=== PATIENT | male | born 2005 ===

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

== ENCOUNTER 2024-02-16 20:56 | Emergency (ER) | payer SELFPAY ==
[2024-02-16 20:57] VITALS: BP 113/66; PULSE 81; RESP 20; TEMP 37; O2SAT 98; BMI 27.5
--- NOTE | 2024-02-16 21:23 | ED_ITS ---
HPI - Nausea/Vomiting/Diarrhea General Chief complaint: Nausea/Vomiting/Diarrhea Stated complaint: vomiting Time Seen by Provider: 02/16/24 21:15 Source: patient Mode of arrival: ambulatory Limitations: no limitations History of Present Illness ED Provider: Dr. Jigna Dumont HPI Narrative: Patient comes to the emergency room complaining of nausea vomiting and diarrhea. Patient states that earlier today he has been eating throughout the day food and also ate shrooms. It has been couple of hours since the symptoms started. Patient denies chest pain or shortness of breath, denies any hematemesis or melena. Patient denies any significant abdominal pain. Related Data Previous Rx's ?Medication ?Instructions ?Recorded hydrocodone 5 mg-acetaminophen 325 1 tab PO Q4H PRN pain 7 days #14 11/29/ mg tablet tabs loperamide 2 mg tablet 2 mg PO Q6H PRN loose stool #14 02/16/24 tabs ondansetron 4 mg disintegrating 4 mg PO Q6H PRN nausea and 02/16/24 tablet vomiting #10 tabs Allergies Allergy/AdvReac Type Severity Reaction Status Date / Time shellfish derived Allergy Severe Anaphylaxis Verified 02/16/24 21:00 Review of Systems 2 Review of Systems: Constitutional : No Weight loss, No Fever, No Chills, No Night Sweats, No Fatigue, No Malaise ENT/Mouth : No Hearing loss, No Ear Pain, No Nasal Congestion, No Sinus Pain, No Hoarseness, No sore throat, No Rhinorrhea, No Swallowing Difficulty Eyes: No Eye Pain, No Swelling, No Redness, No Foreign Body, No Discharge, No Vision Changes Cardiovascular : No Chest Pain, No SOB, No Dyspnea on Exertion, No Orthopnea, No Edema, No Palpitations Respiratory : No Cough, No Sputum, No Wheezing, No Smoke Exposure, No Dyspnea Gastrointestinal : Complaining of nausea vomiting and diarrhea, No Constipation, No abdominal Pain, No Hematochezia, No Melena Genitourinary : no irregular bleeding, No Dysuria, No Urinary Frequency, No Hematuria, No Urinary Incontinence, No Urgency, No Flank Pain, No Urinary Flow Changes, No Hesitancy Musculoskeletal : No joint pain, No Myalgias, No Joint Swelling Skin : No Skin Lesions, No rash Neuro : No Weakness, No Numbness, No Paresthesias, No Loss of Consciousness, No Dizziness, No Headache Psych : No Anxiety/Panic, No Depression, No SI/HI/AH/VH, No Social Issues, Heme/Lymph: No Bruising, No Bleeding,No Lymphadenopathy Endocrine : No Polyuria, No Polydipsia, No Temperature Intolerance PENDING SALE TO [facility] Past Medical History Medical History (Updated 02/16/24 @ 22:27 by Jigna Dumont MD) Rupture of testis No known health problems Surgical History History of tonsillectomy and adenoidectomy Social History Social History Patient Tobacco Use Status: Never used Tobacco Advance Directives: No Advance Directives Information Provided: No Physical Exam 2 Vital Signs: Vital Signs: Last Vital Signs Temp 98.6 F 02/16/24 20:57 Pulse 81 02/16/24 20:57 Resp 20 02/16/24 20:57 BP 113/66 02/16/24 20:57 Pulse Ox 98 02/16/24 20:57 O2 Del Method Room Air 02/16/24 20:57 BMI result Body Mass Index 27.5 Const: Other: Appearance: Alert. Oriented X3. No acute distress. Well-appearing Eyes: Pupils equal, round and reactive to light. ENT: Pharynx normal. Neck: Normal inspection. Neck supple. No lymph nodes noted. No crepitus CVS: Normal heart rate and rhythm. Pulses normal. Normal S1 and S2 Respiratory: No respiratory distress. Breath sounds normal. No Wheezing. No rales Abdomen: Soft and nontender. No rigidity. No distention. Skin: Skin warm and dry. Normal skin color. Normal skin turgor. Extremities: No lower extremity edema. No Lacerations. No Rash Neuro: Oriented X 3. No motor deficit. No sensory deficit. Moving all extremities. No slurred speech. CN 2 through 12 grossly intact Psych: calm, cooperative, normal affect Course Course Course Narrative: Patient receiving IV fluids, loperamide and Zofran. All labs pending Discussed with the patient that depending on his labs and repeat physical exam, we will determine if he needs any imaging. Medications Administered Discontinued Medications Generic Name Dose Route Start Last Admin Trade Name Freq PRN Reason Stop Dose Admin Sodium Chloride 1,000 mls @ 999 mls/hr 02/16/24 21:21 02/16/24 22:23 Ns IVCONT 02/16/24 22:21 999 mls/hr .Q1H1M ONE Administration Loperamide HCl 4 mg 02/16/24 21:21 02/16/24 22:23 Loperamide Hcl 2 Mg Capsule PO 02/16/24 21:22 4 mg ONCE ONE Administration Ondansetron HCl 4 mg 02/16/24 21:21 02/16/24 22:23 Ondansetron Hcl 4 Mg/2 Ml Vial IVPUSH 02/16/24 21:22 4 mg ONCE ONE Administration Medical Decision Making Medical Decision Making [facility] Narrative: After the above-mentioned treatment, patient feeling much better. Physical exam after the IV treatment, patient feels much better, no abdominal pain, well-appearing, well-hydrated Patient has not had any episodes of vomiting or diarrhea. Patient likely had a reaction to the shrooms that he ate, versus gastroenteritis. Versus viral syndrome Differential Diagnosis Differential Diagnoses: The differential diagnosis associated with the presentation includes (As above) Lab Data [facility] Lab Attestation statement: I reviewed the patient's lab results. 02/16/24 21:40 02/16/24 21:40 Labs: Lab Results 02/16/24 02/16/24 Range/Units 21:40 21:58 WBC 8.4 (4.8-10.8) X10*3/uL RBC 4.96 (4.60-5.80) X10*6/uL Hgb 15.4 (14.0-18.0) g/dl Hct 42.8 (42.0-52.0) % MCV 86.3 (80.0-98.0) fL MCH 31.0 (27.0-33.0) pg MCHC 36.0 (31.0-36.0) g/dl RDW 12.2 (11.0-16.0) % Plt Count 245 (160-400) X10*3/uL MPV 8.9 L (9.4-12.4) fL Immature Gran % (Auto) 0.4 (0.0-0.4) % Neut % (Auto) 61.3 (45-73) % Lymph % (Auto) 26.0 (20-40) % [place] % (Auto) 7.0 (2-11) % Eos % (Auto) 4.5 H (0-4) % Baso % (Auto) 0.8 (0-2) % Lymph # (Auto) 2.2 (1.2-4.9) X10*3/uL [place] # (Auto) 0.6 (0.1-1.2) X10*3/uL Eos # (Auto) 0.4 (0.0-0.4) X10*3/uL Baso # (Auto) 0.1 (0.0-0.2) X10*3/uL Abs Immat Gran (auto) 0.03 (0.00-0.03) X10*3/uL Absolute Neuts (auto) 5.2 (2.0-8.3) x10*3/uL Absolute Nucleated RBC 0.000 (0.0-0.012) X10*3/uL Nucleated RBC % (auto) 0.0 (0.0-0.2) /100WBC Sodium 140 (135-145) mmol/L Potassium 3.7 (3.3-5.1) mmol/L Chloride 107 (96-108) mmol/L Carbon Dioxide 24 (22-29) mmol/L Anion Gap 13 (12-20) BUN 13 (9-16) mg/dL Creatinine 0.82 (0.5-1.4) mg/dL Estim Creat Clear Calc 136.0 Estimated GFR > 60 Random Glucose 97 (60-115) mg/dL Calcium 9.5 (8.4-10.2) mg/dL Magnesium 1.9 (1.6-2.6) mg/dL Total Bilirubin 0.3 (0.0-1.0) mg/dL Direct Bilirubin 0.1 (0.0-0.5) mg/dL AST 25 (5-37) U/L ALT 29 (0-40) U/L Alkaline Phosphatase 68 (39-117) U/L Total Protein 7.2 (6.5-8.0) g/dL Albumin 4.6 (3.5-5.0) g/dL Lipase 16 (8-78) U/L Urine Color Yellow Urine Appearance Clear Urine pH 7.0 (5.0-9.0) Ur Specific [place] 1.015 (1.005-1.025) Urine Protein Negative (Neg-Trace) mg/dL Urine Glucose (UA) Negative (Negative) mg/dL Urine Ketones Negative (Negative) mg/dL Urine Blood Negative (Negative) Urine Nitrite Negative (Negative) Ur Leukocyte Esterase Negative (Negative) Ethyl Alcohol < 10 mg/dL Discharge Plan Discharge Clinical Impression: Nausea vomiting and diarrhea Patient Disposition: Home, Self-Care Instructions: Acute Nausea and Vomiting (ED), Acute Diarrhea (ED) Additional Instructions: Please follow-up with your primary care physician tomorrow. If you have any worsening or new symptoms, please return to the emergency room or call 911 Prescriptions: New loperamide 2 mg tablet 2 mg PO Q6H PRN (Reason: loose stool) Qty: 14 0RF ondansetron 4 mg tablet,disintegrating 4 mg PO Q6H PRN (Reason: nausea and vomiting) Qty: 10 0RF No Action hydrocodone-acetaminophen 5-325 mg tablet 1 tab PO Q4H PRN (Reason: pain) 7 Days Qty: 14 0RF Rx Instructions: Partial Fill upon patient request. Print Language: Croatian
[2024-02-16 21:44] LABS: MANUAL DIFF FLAG NO
[2024-02-16 21:45] LABS: Basophils Absolute Auto 0.1 X10*3/uL (0.0-0.2); Basophils Percent Auto 0.8 % (0-2); Eosinophils Absolute Auto 0.4 X10*3/uL (0.0-0.4); Eosinophils Percent Auto 4.5 % (0-4); Hematocrit 42.8 % (42.0-52.0); Hemoglobin 15.4 g/dl (14.0-18.0); Imm Gran Abs Auto 0.03 X10*3/uL (0.00-0.03); Imm Gran Pct Auto 0.4 % (0.0-0.4); Lymphocytes Absolute Auto 2.2 X10*3/uL (1.2-4.9); Mean Corpuscular Volume 86.3 fL (80.0-98.0); Mean Platelet Volume 8.9 fL (9.4-12.4); Monocytes Absolute Auto 0.6 X10*3/uL (0.1-1.2); Neutrophils Absolute Auto 5.2 x10*3/uL (2.0-8.3); Neutrophils Percent Auto 61.3 % (45-73); Platelet Count 245 X10*3/uL (160-400); Red Blood Count 4.96 X10*6/uL (4.60-5.80); Red Cell Distribution Width 12.2 % (11.0-16.0); White Blood Count 8.4 X10*3/uL (4.8-10.8)
[2024-02-16 22:03] LABS: Alanine Aminotransferase 29 U/L (0-40); Albumin Level 4.6 g/dL (3.5-5.0); Alkaline Phosphatase 68 U/L (39-117); Anion Gap 13 (12-20); Aspartate Amino Transferase 25 U/L (5-37); Bilirubin Direct 0.1 mg/dL (0.0-0.5); Bilirubin Total 0.3 mg/dL (0.0-1.0); Blood Urea Nitrogen 13 mg/dL (9-16); Calcium 9.5 mg/dL (8.4-10.2); Carbon Dioxide 24 mmol/L (22-29); Chloride 107 mmol/L (96-108); Estimated Glomerular Filt Rate > 60; Ethanol < 10 mg/dL; Glucose Random 97 mg/dL (60-115); Lipase 16 U/L (8-78); Magnesium 1.9 mg/dL (1.6-2.6); Potassium 3.7 mmol/L (3.3-5.1); Sodium 140 mmol/L (135-145); Total Protein 7.2 g/dL (6.5-8.0)
[2024-02-16 22:09] LABS: Appearance Urine Clear; Color Urine Yellow; Glucose Urine UA Negative (Negative); Leukocyte Esterase Urine Negative (Negative); Nitrite Urine Negative (Negative); Specific Gravity - Urine 1.015 (1.005-1.025); Urine Blood Negative (Negative); Urine Ketones Negative (Negative); Urine Protein Negative (Neg-Trace)
[2024-02-16] MEDS: 0.9 % Sodium Chloride 1,000 ML 999 ML IVCONT (22:23)
[2024-02-16] MEDS: Loperamide HCl 2 MG CAPSULE 4 MG PO (22:23)
[2024-02-16] MEDS: ondansetron HCL 4 MG/2 ML VIAL IVPUSH (22:23)
[2024-02-16 22:30] LABS: Amphetamine Screen Urine Not Detected (Not Detect); Barbiturates, Urine Not Detected (Not Detect); Benzodiazepines Screen Urine Not Detected (Not Detect); Buprenorphine Scr Not Detected (Not Detect); Cannabinoid Screen Urine POSITIVE (Not Detect); Cocaine Screen Urine Not Detected (Not Detect); Fentanyl, urine Not Detected (Not Detect); Methadone Screen, Urine Not Detected (Not Detect); Opiate Screen Urine Not Detected (Not Detect); Oxycodone Screen Urine Not Detected (Not Detect); Phencyclidine Screen Urine Not Detected (Not Detect)
[2024-02-16 23:45] VITALS: BP 113/66; PULSE 81; RESP 20; TEMP 37; O2SAT 98
== END 2024-02-16 23:45 | disposition home or self-care (01) ==
PROVIDERS: Emergency Provider Emergency Medicine
DX: R11.2 Nausea with vomiting, unspecified (principal); R19.7 Diarrhea, unspecified; F12.90 Cannabis use, unspecified, uncomplicated; Z79.899 Other long term (current) drug therapy
CPT/HCPCS: 36415; 80048; 80076; 80307; 81003; 83690; 83735; 85025; 96374; 99284; J2405

== ENCOUNTER 2024-03-05 05:59 | Emergency (ER) | payer SELFPAY ==
--- NOTE | 2024-03-05 | ECG_ITS ---
Test Reason : CHEST PAIN Blood Pressure : / mmHG Vent. Rate : 065 BPM Atrial Rate : 065 BPM P-R Int : 150 ms QRS Dur : 088 ms QT Int : 374 ms P-R-T Axes : 017 054 018 degrees QTc Int : 388 ms Normal sinus rhythm Normal ECG No previous ECGs available Referred By: Generic ED Physician Electronically Signed By:LIANET SAPP
[2024-03-05 06:02] VITALS: BP 117/70; PULSE 79; RESP 16; TEMP 36.8; O2SAT 98; BMI 30.1
[2024-03-05 06:33] LABS: MANUAL DIFF FLAG NO
[2024-03-05 06:36] LABS: Basophils Percent Auto 0.5 % (0-2); Eosinophils Absolute Auto 0.1 X10*3/uL (0.0-0.4); Eosinophils Percent Auto 1.1 % (0-4); Hemoglobin 14.7 g/dl (14.0-18.0); Imm Gran Abs Auto 0.02 X10*3/uL (0.00-0.03); Imm Gran Pct Auto 0.4 % (0.0-0.4); Lymphocytes Percent Auto 35.4 % (20-40); Mean Corpuscular HGB Conc 35.9 g/dl (31.0-36.0); Mean Corpuscular Hemoglobin 30.9 pg (27.0-33.0); Mean Corpuscular Volume 86.3 fL (80.0-98.0); Mean Platelet Volume 8.9 fL (9.4-12.4); Monocytes Absolute Auto 0.4 X10*3/uL (0.1-1.2); Monocytes Percent Auto 7.2 % (2-11); Neutrophils Absolute Auto 3.1 x10*3/uL (2.0-8.3); Neutrophils Percent Auto 55.4 % (45-73); Platelet Count 279 X10*3/uL (160-400); Red Blood Count 4.75 X10*6/uL (4.60-5.80); Red Cell Distribution Width 12.1 % (11.0-16.0); White Blood Count 5.6 X10*3/uL (4.8-10.8)
--- NOTE | 2024-03-05 06:42 | ED_ITS ---
HPI - General Adult General Chief complaint: General Medical Stated complaint: vomiting Time Seen by Provider: 03/05/24 06:38 Source: patient Mode of arrival: ambulatory Limitations: no limitations History of Present Illness ED Provider: Marium Otero PA-C HPI narrative: Patient is a 18 year old assigned male at with no reported medical history presenting to the emergency department today with nausea, vomiting, and feeling generally unwell. Patient states that he was at work and when he got home he began to feel generally unwell with nausea and vomiting. Patient states that he felt his heart race and had some dizziness but that has since resolved. Patient denies any lightheadedness, abdominal pain, fever, chills, blurry vision, double vision, loss of vision, chest pain, difficulty breathing, shortness of breath, back pain, night sweats, pain with urination, increased urinary frequency, increased urinary urgency, blood in his urine or stool, syncope or a near syncopal episode, recent trauma or falls, bowel incontinence, bladder incontinence, or any other complaints at this time. Onset (ago): hour(s) Relieving factors: none Exacerbating factors: none Associated symptoms: nausea/vomiting Treatments prior to arrival: none Related Data Previous Rx's ?Medication ?Instructions ?Recorded hydrocodone 5 mg-acetaminophen 325 1 tab PO Q4H PRN pain 7 days #14 11/29/22 mg tablet tabs loperamide 2 mg tablet 2 mg PO Q6H PRN loose stool #14 02/16/24 tabs ondansetron 4 mg disintegrating 4 mg PO Q6H PRN nausea and 02/16/24 tablet vomiting #10 tabs ondansetron 4 mg disintegrating 4 mg PO Q8H 3 days #9 tabs 03/05/24 tablet Allergies Allergy/AdvReac Type Severity Reaction Status Date / Time shellfish derived Allergy Severe Anaphylaxis Verified 03/05/24 06:04 Review of Systems 2 Constitutional: Constitutional: Reports no additional constitutional complaints, Denies chills, Denies fever(s) and Denies night sweats Eyes: Eyes: Reports no additional eye complaints, Denies blurry vision, Denies change in vision, Denies diplopia, Denies eye discharge, Denies loss of vision and Denies eye pain ENT: Reports dizziness (now resolved) Cardiovascular: Cardiovascular: Reports no additional cardiovascular complaints, Denies chest pain, Denies lightheadedness, Denies Loss of Consciousness, Reports palpitations (now resolved) and Denies dyspnea Respiratory: Respiratory: Reports no additional respiratory complaints and Denies dyspnea Gastrointestinal: Gastrointestinal: Reports no additional gastrointestinal complaints, Denies abdominal pain, Denies melena, Denies hematochezia, Denies change in bowel habits, Denies change in stool character, Reports nausea and Reports vomiting Genitourinary: Genitourinary: Reports no additional male genitourinary complaints, Denies hematuria, Denies oliguria, Denies difficulty urinating, Denies dysuria, Denies urinary frequency, Denies urinary hesitancy, Denies urinary incontinence and Denies urinary urgency Musculoskeletal: Musculoskeletal: Reports no additional musculoskeletal complaints, Denies numbness and Denies tingling Neurologic: Reports dizziness (now resolved), Denies loss of vision, Denies numbness and Denies tingling Psychiatric: Psychiatric: Reports no additional psychiatric complaints Endocrine: Endocrine: Reports no additional endocrine complaints and Reports palpitations (now resolved) Hematologic/Lymphatic: Hematologic/Lymphatic: Reports no additional hematologic/lymphatic complaints Allergic/Immunologic: Allergic/Immunologic: Reports no additional allergic/immunologic complaints PMFSH Past Medical History Attestation statement: The following information was validated with the patient. Source: old records reviewed and nursing notes reviewed Medical History Rupture of testis No known health problems Surgical History History of tonsillectomy and adenoidectomy Social History Social History Patient Tobacco Use Status: Never used Tobacco Advance Directives: No Do you have a plan to hurt others: No Plan Physical Exam ED Vital Signs: Vital Signs - 24 hr 03/05/24 06:02 Temperature 98.2 F Pulse Rate 79 Respiratory Rate 16 Blood Pressure 117/70 Pulse Oximetry 98 Oxygen Delivery Method Room Air BMI result Body Mass Index 30.1 Const General: cooperative, no acute distress, alert and awake Nutritional Appearance: well nourished Orientation/consciousness: patient oriented x3 Limitations: no limitations HENMT Head: Yes normal to inspection and Yes atraumatic Ears: hearing grossly normal bilaterally and external ears normal General nose exam: Normal external nose present, no nasal discharge noted and no epistaxis Face and sinus: Yes normal facial exam, No abrasion and No laceration Mouth: Normal oral and palatal mucosa present, no drooling and no muffled voice Eyes General: appearance normal, both eyes and all related structures Periorbital: periorbital findings normal Eyelids: Yes eyelids normal Conjunctivae: conjunctivae normal Pupils: Equal, round and reactive pupils present EOM: EOMs intact bilaterally Neck Neck: Yes normal visual inspection, Yes full ROM and Yes no lymphadenopathy Chest Chest palpation & inspection: normal inspection of the chest Resp Effort & Inspection: normal respiratory effort and able to speak in complete sentences GI Inspection: Yes normal to inspection Palpation (GI): Soft to palpation, not firm, nontender, no guarding and not rigid Neuro General: patient oriented x3 and moves all extremities Cranial nerves: Yes Equal, round and reactive pupils present Cognition (Neuro): normal cognition Extrem General: Yes normal to inspection, Yes full ROM and Yes capillary refill normal Psych Appearance: grossly normal Mental Status: mental status grossly normal Affect: normal affect Attitude: cooperative Thought process: Normal thought process present Thought content: Normal thought content present Insight: Good insight present (Psych) Medications Administered Generic Name Dose Route Start Last Admin Trade Name Freq PRN Reason Stop Dose Admin Sodium Chloride 1,000 mls @ 999 mls/hr 03/05/24 07:30 03/05/24 07:24 Ns IV 03/05/24 08:30 999 mls/hr .Q1H1M NEIDA Administration Discontinued Medications Generic Name Dose Route Start Last Admin Trade Name Freq PRN Reason Stop Dose Admin Ondansetron HCl 4 mg 03/05/24 07:16 03/05/24 07:25 Ondansetron Hcl 4 Mg/2 Ml Vial IVPUSH 03/05/24 07:17 4 mg ONCE ONE Administration Medical Decision Making Medical Decision Making [facility] Narrative: Patient is a 18 year old assigned male at with no reported medical history presenting to the emergency department today with nausea, vomiting, and feeling generally unwell. Patient's physical exam was unremarkable. Patient's blood work was unremarkable. Patient's EKG was unremarkable. I explained my physical exam findings as well as all test results to the patient. I answered all questions asked by the patient. Patient received IV Zofran and fluids which, upon re- evaluation, he stated it helped his symptoms significantly. I stressed the importance of the patient taking his medication as directed (either prescribed or as the over the counter packaging recommends). I stressed the importance of the patient following up with his primary care provider. I stressed the importance of the patient returning to the emergency department immediately if his symptoms were to worsen or if he were to develop any dizziness, shortness of breath, difficulty breathing, chest pain, blurry vision, loss of vision, nausea, vomiting, abdominal pain, fever, chills, back pain, or any other complaints. Patient verbalized agreement and understanding with this treatment plan and discharge. Differential Diagnosis Differential Diagnoses: The differential diagnosis associated with the presentation includes Gastroenteritis Nausea Vomiting Viral illness Admission/Observation Consideration of admission/observation: Escalation of care including admission/observation considered Patient would have been admitted to the hospital had his work up had any findings where hospital admission was appropriate and his clinical presentation warranted hospital admission. Lab Data [facility] Lab Attestation statement: I reviewed the patient's lab results. My interpretation of these results are in the [facility] Rationale portion of this note. 03/05/24 06:28 03/05/24 06:28 Labs: Lab Results 03/05/24 Range/Units 06:28 WBC 5.6 (4.8-10.8) X10*3/uL RBC 4.75 (4.60-5.80) X10*6/uL Hgb 14.7 (14.0-18.0) g/dl Hct 41.0 L (42.0-52.0) % MCV 86.3 (80.0-98.0) fL MCH 30.9 (27.0-33.0) pg MCHC 35.9 (31.0-36.0) g/dl RDW 12.1 (11.0-16.0) % Plt Count 279 (160-400) X10*3/uL MPV 8.9 L (9.4-12.4) fL Immature Gran % (Auto) 0.4 (0.0-0.4) % Neut % (Auto) 55.4 (45-73) % Lymph % (Auto) 35.4 (20-40) % [place] % (Auto) 7.2 (2-11) % Eos % (Auto) 1.1 (0-4) % Baso % (Auto) 0.5 (0-2) % Lymph # (Auto) 2.0 (1.2-4.9) X10*3/uL [place] # (Auto) 0.4 (0.1-1.2) X10*3/uL Eos # (Auto) 0.1 (0.0-0.4) X10*3/uL Baso # (Auto) 0.0 (0.0-0.2) X10*3/uL Abs Immat Gran (auto) 0.02 (0.00-0.03) X10*3/uL Absolute Neuts (auto) 3.1 (2.0-8.3) x10*3/uL Absolute Nucleated RBC 0.000 (0.0-0.012) X10*3/uL Nucleated RBC % (auto) 0.0 (0.0-0.2) /100WBC Sodium 140 (135-145) mmol/L Potassium 3.4 (3.3-5.1) mmol/L Chloride 108 (96-108) mmol/L Carbon Dioxide 24 (22-29) mmol/L Anion Gap 11 L (12-20) BUN 12 (9-16) mg/dL Creatinine 0.74 (0.5-1.4) mg/dL Estim Creat Clear Calc 146.3 Estimated GFR > 60 Random Glucose 90 (60-115) mg/dL Calcium 8.9 D (8.4-10.2) mg/dL Total Bilirubin 0.4 (0.0-1.0) mg/dL AST 22 (5-37) U/L ALT 13 (0-40) U/L Alkaline Phosphatase 59 (39-117) U/L Total Protein 7.2 (6.5-8.0) g/dL Albumin 4.6 (3.5-5.0) g/dL Influenza Type A (PCR) NEGATIVE (Negative) Influenza Type B (PCR) NEGATIVE (Negative) RSV RNA Qual (PCR) NEGATIVE (Negative) SARS-CoV-2 RNA (RT-PCR) NEGATIVE (Negative) Independent Interpretation I performed an independent interpretation of an: EKG Interpretation: Vent. Rate: 065 BPM Atrial Rate: 065 BPM P-R Int: 150 ms QRS Dur: 088 ms QT Int: 374 ms P-R-T Axes: 017 054 018 degrees QTc Int: 388 ms Normal sinus rhythm Normal ECG No previous ECGs available DD/ 0618 Tests considered The following testing was considered but not selected: I considered obtaining a CT scan of the abdomen/pelvis however, the patient's clinical presentation and work up does not warrant it at this time. I discussed this with the patient who verbalized understanding and agreement. Discharge Plan Discharge Clinical Impression: Nausea & vomiting, Gastroenteritis Patient Disposition: Home, Self-Care Instructions: Gastroenteritis (DC), Acute Nausea and Vomiting (ED) Additional Instructions: Follow up with your primary care provider. Return to the emergency department immediately if your symptoms worsen or if you develop any dizziness, shortness of breath, difficulty breathing, chest pain, blurry vision, loss of vision, nausea, vomiting, abdominal pain, fever, chills, back pain, or any other complaints. Prescriptions: New ondansetron 4 mg tablet,disintegrating 4 mg PO Q8H 3 Days Qty: 9 0RF No Action hydrocodone-acetaminophen 5-325 mg tablet 1 tab PO Q4H PRN (Reason: pain) 7 Days Qty: 14 0RF Rx Instructions: Partial Fill upon patient request. loperamide 2 mg tablet 2 mg PO Q6H PRN (Reason: loose stool) Qty: 14 0RF ondansetron 4 mg tablet,disintegrating 4 mg PO Q6H PRN (Reason: nausea and vomiting) Qty: 10 0RF [place]: [facility] [place] (Call to establish and follow up with a primary care provider. If you already have a primary care provider, please follow up with them.) [facility] [place]] (Call to establish and follow up with a primary care provider. If you already have a primary care provider, please follow up with them.) [facility] [Provider Group] (Call to establish and follow up with a primary care provider. If you already have a primary care provider, please follow up with them.) Stand Alone Forms: Work/School Release Print Language: Guatemalan
[2024-03-05 06:53] LABS: Alanine Aminotransferase 13 U/L (0-40); Albumin Level 4.6 g/dL (3.5-5.0); Alkaline Phosphatase 59 U/L (39-117); Anion Gap 11 (12-20); Aspartate Amino Transferase 22 U/L (5-37); Bilirubin Total 0.4 mg/dL (0.0-1.0); Blood Urea Nitrogen 12 mg/dL (9-16); Calcium 8.9 mg/dL (8.4-10.2); Carbon Dioxide 24 mmol/L (22-29); Chloride 108 mmol/L (96-108); Creatinine Clr Calc Pharmacy 146.3; Estimated Glomerular Filt Rate > 60; Glucose Random 90 mg/dL (60-115); Potassium 3.4 mmol/L (3.3-5.1); Sodium 140 mmol/L (135-145); Total Protein 7.2 g/dL (6.5-8.0)
[2024-03-05 07:14] LABS: Influenza A PCR NEGATIVE (Negative); Influenza B PCR NEGATIVE (Negative); Resp Syncy Virus RNA Qual PCR NEGATIVE (Negative); SARS COV2 PCR INHOUSE NEGATIVE (Negative)
[2024-03-05] MEDS: 0.9 % Sodium Chloride 1,000 ML 999 ML IV (07:24)
[2024-03-05] MEDS: ondansetron HCL 4 MG/2 ML VIAL IVPUSH (07:25)
[2024-03-05 08:28] VITALS: BP 102/60; PULSE 59; RESP 18; TEMP 36.8; O2SAT 99
== END 2024-03-05 08:29 | disposition home or self-care (01) ==
PROVIDERS: Emergency Provider Emergency Medicine
DX: K52.9 Noninfective gastroenteritis and colitis, unspecified (principal); R11.2 Nausea with vomiting, unspecified; R07.89 Other chest pain; Z03.818 Encounter for observation for suspected exposure to other biological agents ruled out; Z79.899 Other long term (current) drug therapy
CPT/HCPCS: 0241U; 80053; 85025; 93005; 96361; 96374; 99284; J2405

== ENCOUNTER → 2024-03-05 06:18 | Outpatient (BNV) | payer SELFPAY | PROVIDERS: Emergency Provider Emergency Medicine; Visit Provider Internal Medicine | DX: R07.9 Chest pain, unspecified (principal) | CPT/HCPCS: 93010 ==

== ENCOUNTER 2024-07-05 11:30 | Inpatient (IN) | payer OTHER, SELFPAY ==
[2024-07-05] VITALS (10 sets, daily range): BP systolic 101–131; BP diastolic 56–83; PULSE 62–98; RESP 15–18; TEMP 36.3–36.9; O2SAT 96–100; BMI 30.3; BMI 32.2
--- NOTE | ~2024-07-05 | CT_ITS ---
CLINICAL HISTORY: Right lower quadrant abdominal pain CT abdomen and pelvis with contrast Comparison: None Findings: No consolidation or effusion. Unremarkable gallbladder and solid organs. No urolithiasis. No bowel obstruction, pneumoperitoneum, or pneumatosis. Pelvic contents unremarkable. The distal appendix is abnormal in appearance with periappendiceal edema consistent with appendicitis. There is no focal mass or collection to suggest abscess. The bones are intact. IMPRESSION: Appendicitis This document has been electronically signed by: Iker Ledesma MD on 07/05/2024 14:55:34
--- NOTE | 2024-07-05 11:37 | ED.ABDPAIN ---
HPI - Abdominal Pain General Chief Complaint: Abdominal Pain Stated Complaint: sharp stomach pain Time Seen by Provider: 07/05/24 11:51 Related Data Home Medications ?Medication ?Instructions ?Recorded ?Confirmed No Known Home Meds 07/05/24 07/05/24 Allergies Allergy/AdvReac Type Severity Reaction Status Date / Time shellfish derived Allergy Severe Anaphylaxis Verified 07/05/24 11:39 PMFSH Past Medical History Medical History Rupture of testis No known health problems Surgical History History of tonsillectomy and adenoidectomy Social History Social History Unable to assess alcohol history related to: Unknown Patient Tobacco Use Status: Never used Tobacco Smoked in Last 30 Days: No Use of substances other than those prescribed or required for medical reasons: No Advance Directives: No Advance Directives Information Provided: Yes Do you have a plan to hurt others: No Plan Physical Exam ED Vital Signs: Vital Signs - 24 hr 07/05/24 11:37 07/05/24 14:30 07/05/24 15:31 Temperature 98.4 F 98.4 F Pulse Rate 75 62 63 Respiratory Rate 18 16 16 Blood Pressure 121/83 102/56 L 108/64 Pulse Oximetry 98 96 97 Oxygen Delivery Method Room Air Room Air Room Air 07/05/24 16:07 Temperature Pulse Rate 73 Respiratory Rate 16 Blood Pressure 101/65 Pulse Oximetry 97 Oxygen Delivery Method Room Air BMI result Body Mass Index 30.3 Course Course Course Narrative: This is an RME: Additional HPI, ROS, PE not included below will be deferred to primary provider. RME assessment and note performed by: Swathi Son PA-C This is a 52-male who presents to the ER with complaints of sharp abdominal pain x 2 days. Reports that the pain occasionally goes to different locations but primarily in the RLQ. Reports nausea, no vomiting. Reporting 10/10. Pain is waxing and waning. Abdomen is soft, with tenderness palpation in the right lower quadrant. No urinary symptoms. Last moved his bowels yesterday. Further ER evaluation needed. Surgical Hx: testicular exploration with repair of the left testes s/p trauma. No other abd surgeries. Plan: Labs, UA, +- diagnostic imaging, deferring to primary provider Reevaluation(s) Reevaluation #1: Duplicate chart, see from primary provider, Dr. Lee. Medical Decision Making Lab Data 07/05/24 11:49 07/05/24 11:49 Labs: Lab Results 07/05/24 07/05/24 Range/Units 11:49 14:33 WBC 9.1 (4.8-10.8) X10*3/uL RBC 5.24 (4.60-5.80) X10*6/uL Hgb 16.0 (14.0-18.0) g/dl Hct 46.4 (42.0-52.0) % MCV 88.5 (80.0-98.0) fL MCH 30.5 (27.0-33.0) pg MCHC 34.5 (31.0-36.0) g/dl RDW 12.2 (11.0-16.0) % Plt Count 247 (160-400) X10*3/uL MPV 8.9 L (9.4-12.4) fL Immature Gran % (Auto) 0.2 (0.0-0.4) % Neut % (Auto) 73.6 H (45-73) % Lymph % (Auto) 17.3 L (20-40) % [place] % (Auto) 6.9 (2-11) % Eos % (Auto) 1.4 (0-4) % Baso % (Auto) 0.6 (0-2) % Lymph # (Auto) 1.6 (1.2-4.9) X10*3/uL [place] # (Auto) 0.6 (0.1-1.2) X10*3/uL Eos # (Auto) 0.1 (0.0-0.4) X10*3/uL Baso # (Auto) 0.1 (0.0-0.2) X10*3/uL Abs Immat Gran (auto) 0.02 (0.00-0.03) X10*3/uL Absolute Neuts (auto) 6.7 (2.0-8.3) x10*3/uL Absolute Nucleated RBC 0.000 (0.0-0.012) X10*3/uL Nucleated RBC % (auto) 0.0 (0.0-0.2) /100WBC Sodium 141 (135-145) mmol/L Potassium 4.1 D (3.3-5.1) mmol/L Chloride 107 (96-108) mmol/L Carbon Dioxide 21 L (22-29) mmol/L Anion Gap 17 (12-20) BUN 11 (9-16) mg/dL Creatinine 0.77 (0.5-1.4) mg/dL Estim Creat Clear Calc 140.9 Estimated GFR > 60 Random Glucose 90 (60-115) mg/dL Calcium 9.9 D (8.4-10.2) mg/dL Magnesium 2.0 (1.6-2.6) mg/dL Total Bilirubin 0.5 (0.0-1.0) mg/dL Direct Bilirubin 0.2 (0.0-0.5) mg/dL AST 27 (5-37) U/L ALT 39 (0-40) U/L Alkaline Phosphatase 71 (39-117) U/L Total Protein 7.7 (6.5-8.0) g/dL Albumin 4.7 (3.5-5.0) g/dL Lipase 10 (8-78) U/L Urine Color Yellow Urine Appearance Clear Urine pH 7.5 (5.0-9.0) Ur Specific [place] >= 1.030 H (1.005-1.025) Urine Protein Negative (Neg-Trace) mg/dL Urine Glucose (UA) Negative (Negative) mg/dL Urine Ketones Negative (Negative) mg/dL Urine Blood Negative (Negative) Urine Nitrite Negative (Negative) Ur Leukocyte Esterase Negative (Negative) Medications Administered Generic Name Dose Route Start Last Admin Trade Name Freq PRN Reason Stop Dose Admin Lactated Ringer's 1,000 mls @ 100 mls/hr 07/05/24 15:45 07/05/24 16:10 Lr IVCONT 100 mls/hr .Q10H NEIDA Administration Sodium Chloride 3 ml 07/05/24 16:00 07/05/24 16:05 0.9 % Sodium Chloride Flush 3 Ml Syringe IVFLUSH 3 ml QSHIFT NEIDA Administration Discontinued Medications Generic Name Dose Route Start Last Admin Trade Name Freq PRN Reason Stop Dose Admin Sodium Chloride 1,000 mls @ 999 mls/hr 07/05/24 12:30 07/05/24 13:37 Ns IVCONT 07/05/24 13:30 Infused .Q1H1M NEIDA Infusion Piperacillin Sod/Tazobactam 100 mls @ 200 mls/hr 07/05/24 15:05 07/05/24 15:20 Sod 4.5 gm/ Sodium Chloride IV 07/05/24 15:34 Infused ONCE ONE Infusion Iohexol 100 ml 07/05/24 13:56 07/05/24 13:56 Iohexol 350 Mg/Ml 100 Ml Infus..Btl IV 07/05/24 13:57 85 ml ONCE ONE Administration Ketorolac Tromethamine 15 mg 07/05/24 11:57 07/05/24 12:24 Ketorolac Tromethamine 15 Mg/Ml Vial IVPUSH 07/05/24 11:58 15 mg ONCE ONE Administration Ondansetron HCl 4 mg 07/05/24 12:15 07/05/24 12:24 Ondansetron Hcl 4 Mg/2 Ml Vial IVPUSH 07/05/24 12:16 4 mg ONCE ONE Administration Discharge Plan Discharge Clinical Impression: Acute appendicitis Qualifiers: Acute appendicitis type: unspecified acute appendicitis type Qualified Code(s): K35.80 - Unspecified acute appendicitis Patient Disposition: Admitted As Inpatient Interventions: Admission Worksheet (ED) Last Done: 07/05/24 15:35 Discharge Date/Time: 07/05/24 16:54
[2024-07-05 11:52] LABS: MANUAL DIFF FLAG NO
[2024-07-05 11:54] LABS: Basophils Absolute Auto 0.1 X10*3/uL (0.0-0.2); Basophils Percent Auto 0.6 % (0-2); Eosinophils Absolute Auto 0.1 X10*3/uL (0.0-0.4); Eosinophils Percent Auto 1.4 % (0-4); Hematocrit 46.4 % (42.0-52.0); Imm Gran Abs Auto 0.02 X10*3/uL (0.00-0.03); Imm Gran Pct Auto 0.2 % (0.0-0.4); Lymphocytes Absolute Auto 1.6 X10*3/uL (1.2-4.9); Lymphocytes Percent Auto 17.3 % (20-40); Mean Corpuscular HGB Conc 34.5 g/dl (31.0-36.0); Mean Corpuscular Hemoglobin 30.5 pg (27.0-33.0); Mean Corpuscular Volume 88.5 fL (80.0-98.0); Mean Platelet Volume 8.9 fL (9.4-12.4); Monocytes Absolute Auto 0.6 X10*3/uL (0.1-1.2); Monocytes Percent Auto 6.9 % (2-11); Neutrophils Absolute Auto 6.7 x10*3/uL (2.0-8.3); Neutrophils Percent Auto 73.6 % (45-73); Platelet Count 247 X10*3/uL (160-400); Red Blood Count 5.24 X10*6/uL (4.60-5.80); Red Cell Distribution Width 12.2 % (11.0-16.0); White Blood Count 9.1 X10*3/uL (4.8-10.8)
--- NOTE | 2024-07-05 11:58 | ED.ABDPAIN ---
HPI - Abdominal Pain General Chief Complaint: Abdominal Pain Stated Complaint: sharp stomach pain Time Seen by Provider: 07/05/24 11:51 Source: patient Mode of arrival: EMS Limitations: no limitations History of Present Illness HPI narrative: This is a 18 years old male presented to the emergency department with a chief complaint of right lower quadrant abdominal pain nausea. Pain he has been going on for about 2 days no radiation of the pain. The patient is described as sharp MD elicited complaint: abdominal pain Pertinent past history: none Onset (ago): day(s) (2) Pain Consistency: constant Location: RLQ Severity: mild Quality: cramping Radiation: RLQ Migration to: no migration Exacerbating factors: nothing Relieving factors: nothing Related Data Previous Rx's ?Medication ?Instructions ?Recorded hydrocodone 5 mg-acetaminophen 325 1 tab PO Q4H PRN pain 7 days #14 11/29/ mg tablet tabs loperamide 2 mg tablet 2 mg PO Q6H PRN loose stool #14 02/16/24 tabs ondansetron 4 mg disintegrating 4 mg PO Q6H PRN nausea and 02/16/24 tablet vomiting #10 tabs ondansetron 4 mg disintegrating 4 mg PO Q8H 3 days #9 tabs 24 tablet Allergies Allergy/AdvReac Type Severity Reaction Status Date / Time shellfish derived Allergy Severe Anaphylaxis Verified 07/05/24 11:39 Review of Systems Reports system reviewed and no additional complaints, except as documented Respiratory: Reports no additional respiratory complaints Gastrointestinal: Reports abdominal pain PMFSH Past Medical History PMFSH Narrative: Denies any major medical problems Medical History Rupture of testis No known health problems Surgical History History of tonsillectomy and adenoidectomy Social History Social History Unable to assess alcohol history related to: Unknown Patient Tobacco Use Status: Never used Tobacco Smoked in Last 30 Days: No Use of substances other than those prescribed or required for medical reasons: No Advance Directives: No Advance Directives Information Provided: Yes Do you have a plan to hurt others: No Plan Physical Exam ED Vital Signs: Vital Signs - 24 hr 07/05/24 11:37 07/05/24 14:30 Temperature 98.4 F Pulse Rate 75 62 Respiratory Rate 18 16 Blood Pressure 121/83 102/56 L Pulse Oximetry 98 96 Oxygen Delivery Method Room Air Room Air BMI result Body Mass Index 30.3 Const Other: No acute distress General: cooperative Nutritional Appearance: average body habitus Orientation/consciousness: patient oriented x3 Limitations: no limitations HENMT Head: Yes normal to inspection General nose exam: Normal external nose present Face and sinus: Yes normal facial exam Mouth: Normal oral and palatal mucosa present Throat: Yes posterior oropharynx normal Neck Neck: Yes normal visual inspection Chest Chest palpation & inspection: normal inspection of the chest Resp Effort & Inspection: normal respiratory effort Auscultation: clear to auscultation bilaterally Cardio Jugular venous distension: no JVD Rate: regular rate Rhythm: regular rhythm GI Other: Right lower quadrant tenderness Auscultation: normal bowel sounds Skin General skin exam: no rashes or lesions noted Rashes: no rashes Neuro General: patient oriented x3 Course Reevaluation(s) Reevaluation #1: CT scan consistent with the acute appendicitis case was discussed with the surgeon on-call Dr. Calderon Time: 15:07 Medical Decision Making Medical Decision Making MDM Narrative: Patient is here with a right lower quadrant abdominal pain and differential diagnosis appendicitis/kidney stone Differential Diagnosis Differential Diagnoses: The differential diagnosis associated with the presentation includes Appendicitis/kidney stone Admission/Observation Consideration of admission/observation: Escalation of care including admission/observation considered Consult Healthcare Provider Dr Calderon surgery Lab Data [facility] Lab Attestation statement: I reviewed the patient's lab results. 07/05/24 11:49 07/05/24 11:49 Labs: Lab Results 07/05/24 07/05/24 Range/Units 11:49 14:33 WBC 9.1 (4.8-10.8) X10*3/uL RBC 5.24 (4.60-5.80) X10*6/uL Hgb 16.0 (14.0-18.0) g/dl Hct 46.4 (42.0-52.0) % MCV 88.5 (80.0-98.0) fL MCH 30.5 (27.0-33.0) pg MCHC 34.5 (31.0-36.0) g/dl RDW 12.2 (11.0-16.0) % Plt Count 247 (160-400) X10*3/uL MPV 8.9 L (9.4-12.4) fL Immature Gran % (Auto) 0.2 (0.0-0.4) % Neut % (Auto) 73.6 H (45-73) % Lymph % (Auto) 17.3 L (20-40) % [place] % (Auto) 6.9 (2-11) % Eos % (Auto) 1.4 (0-4) % Baso % (Auto) 0.6 (0-2) % Lymph # (Auto) 1.6 (1.2-4.9) X10*3/uL [place] # (Auto) 0.6 (0.1-1.2) X10*3/uL Eos # (Auto) 0.1 (0.0-0.4) X10*3/uL Baso # (Auto) 0.1 (0.0-0.2) X10*3/uL Abs Immat Gran (auto) 0.02 (0.00-0.03) X10*3/uL Absolute Neuts (auto) 6.7 (2.0-8.3) x10*3/uL Absolute Nucleated RBC 0.000 (0.0-0.012) X10*3/uL Nucleated RBC % (auto) 0.0 (0.0-0.2) /100WBC Alkaline Phosphatase 71 (39-117) U/L Urine Color Yellow Urine Appearance Clear Urine pH 7.5 (5.0-9.0) Ur Specific [place] >= 1.030 H (1.005-1.025) Urine Protein Negative (Neg-Trace) mg/dL Urine Glucose (UA) Negative (Negative) mg/dL Urine Ketones Negative (Negative) mg/dL Urine Blood Negative (Negative) Urine Nitrite Negative (Negative) Ur Leukocyte Esterase Negative (Negative) Independent Interpretation I performed an independent interpretation of an: CT Scan Interpretation: appendicitis Radiology Impression Discussion of test interpretation with radiology: I have reviewed the radiologist's reading. Radiologist Impression: appendicitis Medications Administered Discontinued Medications Generic Name Dose Route Start Last Admin Trade Name Freq PRN Reason Stop Dose Admin Sodium Chloride 1,000 mls @ 999 mls/hr 07/05/24 12:30 07/05/24 13:37 Ns IVCONT 07/05/24 13:30 Infused .Q1H1M NEIDA Infusion Iohexol 100 ml 07/05/24 13:56 07/05/24 13:56 Iohexol 350 Mg/Ml 100 Ml Infus..Btl IV 07/05/24 13:57 85 ml ONCE ONE Administration Ketorolac Tromethamine 15 mg 07/05/24 11:57 07/05/24 12:24 Ketorolac Tromethamine 15 Mg/Ml Vial IVPUSH 07/05/24 11:58 15 mg ONCE ONE Administration Ondansetron HCl 4 mg 07/05/24 12:15 07/05/24 12:24 Ondansetron Hcl 4 Mg/2 Ml Vial IVPUSH 07/05/24 12:16 4 mg ONCE ONE Administration Discharge Plan Discharge Clinical Impression: Acute appendicitis Qualifiers: Acute appendicitis type: unspecified acute appendicitis type Qualified Code(s): K35.80 - Unspecified acute appendicitis Patient Disposition: Admitted As Inpatient Print Language: Egyptian
[2024-07-05] MEDS: ondansetron HCL 4 MG/2 ML VIAL IVPUSH (12:24)
[2024-07-05] MEDS: Ketorolac Tromethamine 15 MG/ML VIAL IVPUSH (12:24)
[2024-07-05] MEDS: 0.9 % Sodium Chloride 1,000 ML 999 ML IVCONT (12:26)
[2024-07-05 12:58] LABS: Alkaline Phosphatase 71 U/L (39-117)
[2024-07-05] MEDS: iohexoL 350 MG/ML 100 ML INFUS..BTL IV (13:56)
[2024-07-05 14:39] LABS: Appearance Urine Clear; Color Urine Yellow; Glucose Urine UA Negative (Negative); Leukocyte Esterase Urine Negative (Negative); Nitrite Urine Negative (Negative); PH 7.5 (5.0-9.0); Specific Gravity - Urine >= 1.030 (1.005-1.025); Urine Blood Negative (Negative); Urine Ketones Negative (Negative); Urine Protein Negative (Neg-Trace)
[2024-07-05 15:09] LABS: Alanine Aminotransferase 39 U/L (0-40); Albumin Level 4.7 g/dL (3.5-5.0); Aspartate Amino Transferase 27 U/L (5-37); Bilirubin Direct 0.2 mg/dL (0.0-0.5); Bilirubin Total 0.5 mg/dL (0.0-1.0); Blood Urea Nitrogen 11 mg/dL (9-16); Calcium 9.9 mg/dL (8.4-10.2); Creatinine Clr Calc Pharmacy 140.9; Estimated Glomerular Filt Rate > 60; Glucose Random 90 mg/dL (60-115); Lipase 10 U/L (8-78); Total Protein 7.7 g/dL (6.5-8.0)
[2024-07-05] MEDS: Piperacillin Sodium/Tazobactam 4.5 GM in 0.9 % Sodium Chloride 100 ML IV (15:17)
--- NOTE | 2024-07-05 15:23 | PHA.MEDREC ---
Pharmacy Consult ? Medication Reconciliation Pharmacy has completed the medication reconciliation. Spoke to pt to confirm meds.
--- NOTE | 2024-07-05 15:51 | PM.HPGS ---
History of Present Illness History of Present Illness Date of Service: 07/05/24 Chief complaint: sharp stomach pain Narrative: Neil Duncan is a 18 year old male presenting with complaints of abdominal pain in the right lower quadrant for 1.5 days. He denies a previous history of similar pain. The pain began in the right lower quadrant and has remained in this location. Upon presentation emergency department is pain was 10/10 in severity. He also reports nausea and vomiting in the emergency department. He denied fever, chills, diarrhea or constipation. Workup in the emergency department revealed tenderness in the right lower quadrant. Laboratories revealed a normal WBC however CT abdomen and pelvis was significant for inflammatory changes at the tip of the appendix suggestive of acute appendicitis without perforation or abscess. He was admitted to the surgical service for further management of the acute appendicitis. Review of Systems Review of Systems: Yes all other systems are reviewed and are negative PMFSH Past Medical History Medical History Rupture of testis No known health problems Surgical History Surgical History History of tonsillectomy and adenoidectomy Social History Social History Unable to assess alcohol history related to: Unknown Patient Tobacco Use Status: Never used Tobacco Smoked in Last 30 Days: No Use of substances other than those prescribed or required for medical reasons: No Advance Directives: No Advance Directives Information Provided: Yes Do you have a plan to hurt others: No Plan Meds Allergies Allergy/AdvReac Type Severity Reaction Status Date / Time shellfish derived Allergy Severe Anaphylaxis Verified 07/05/24 11:39 Home Medications ?Medication ?Instructions ?Recorded ?Confirmed ?Last Taken ?Type No Known Home Meds 07/05/24 07/05/24 Unknown History Physical Exam Vital Signs: Vital Signs: Last Vital Signs Temp 98.4 F 07/05/24 15:31 Pulse 63 07/05/24 15:31 Resp 16 07/05/24 15:31 BP 108/64 07/05/24 15:31 Pulse Ox 97 07/05/24 15:31 O2 Del Method Room Air 07/05/24 15:31 BMI result Body Mass Index 30.3 Const: General: cooperative and no acute distress Nutritional Appearance: well nourished Orientation/consciousness: patient oriented x3 Limitations: no limitations HEENT: Head: Yes normocephalic and Yes atraumatic Ears: hearing grossly normal bilaterally Resp: Effort & Inspection: normal respiratory effort, no audible wheezes, no cough and no respiratory distress Cardio: Jugular venous distension: no JVD GI: Inspection: Yes normal to inspection Palpation (GI): Soft to palpation, Tenderness to palpation present (GI) in the LLQ, in the RLQ, at McBurney's point and Rovsing's sign positive; with no rebound tenderness, no guarding, not rigid, No hepatosplenomegaly present and no hernias Percussion: Yes normal to percussion Auscultation: normal bowel sounds Rectal Exam - Male: Yes deferred Skin: Other: Warm, dry, no rash Neuro: General: patient oriented x3 Extrem: General: Yes no clubbing, cyanosis or edema Results Results Labs: Short CBC 07/05/24 Range/Units 11:49 WBC 9.1 (4.8-10.8) X10*3/uL Hgb 16.0 (14.0-18.0) g/dl Hct 46.4 (42.0-52.0) % Plt Count 247 (160-400) X10*3/uL BMP 07/05/24 11:49 BUN 11 Creatinine 0.77 Calcium 9.9 D Liver Function 07/05/24 Range/Units 11:49 Total Bilirubin 0.5 (0.0-1.0) mg/dL Direct Bilirubin 0.2 (0.0-0.5) mg/dL AST 27 (5-37) U/L ALT 39 (0-40) U/L Alkaline Phosphatase 71 (39-117) U/L Albumin 4.7 (3.5-5.0) g/dL Urine 07/05/24 Range/Units 14:33 Urine Color Yellow Urine Appearance Clear Urine pH 7.5 (5.0-9.0) Ur Specific [place] >= 1.030 H (1.005-1.025) Urine Protein Negative (Neg-Trace) mg/dL Urine Glucose (UA) Negative (Negative) mg/dL Assessment and Plan (1) Acute appendicitis: Qualifiers: Acute appendicitis type: unspecified acute appendicitis type Qualified Code(s): K35.80 - Unspecified acute appendicitis Status: Acute Plan 18-year-old male patient presenting with complaints of abdominal pain in the right lower quadrant found on workup to have acute appendicitis. Review of the CT abdomen and pelvis does reveal inflammatory changes at the tip of the appendix. There appears to be a small fecalith within the appendix as well making nonoperative management with IV antibiotics less successful. I recommended laparoscopic or possible open appendectomy. I reviewed the procedure, risks, and alternatives in detail and he consents to a laparoscopic or possible open appendectomy. He has been added onto the operative schedule for today. Quality Stroke Does the patient have a stroke diagnosis?: No VTE Prior VTE?: No VTE Risk Level:: Surgical - low VTE Device Contraindication: N/A - Device Ordered VTE Drug Contraindication: Treatment Not Indicated Procedures Date of Service Date of Service: 07/05/24
[2024-07-05] MEDS: 0.9 % Sodium Chloride Flush 3 ML SYRINGE IVFLUSH (16:05)
--- NOTE | 2024-07-05 16:05 | HO.ANESPROP2 ---
HPI - Anesthesia Eval Consult details Narrative: acute appemdicitis PMFSH Active Problems Active Problems: All Active Problems Acute appendicitis (Acute) Rupture of testis (Acute) Strain of left elbow (Acute) Past Medical History Medical History Rupture of testis No known health problems Family History Family history of problems with anesthesia: No Surgical History Surgical History History of tonsillectomy and adenoidectomy History of Problems with Anesthesia: No Social History Social History Unable to assess alcohol history related to: Unknown Patient Tobacco Use Status: Never used Tobacco Smoked in Last 30 Days: No Use of substances other than those prescribed or required for medical reasons: No Advance Directives: No Advance Directives Information Provided: Yes Do you have a plan to hurt others: No Plan Meds Allergies Allergy/AdvReac Type Severity Reaction Status Date / Time shellfish derived Allergy Severe Anaphylaxis Verified 07/05/24 11:39 Active Medications: Current Medications Hydromorphone HCl (Hydromorphone Hcl 0.5 Mg/0.5 Ml Syringe) 0.5 mg IVPUSH Q3H PRN; Protocol PRN Reason: Pain, Severe (Pain Scale 7-10) Lactated Ringer's (Lr) 1,000 mls @ 100 mls/hr IVCONT .Q10H NEIDA Melatonin (Melatonin 3 Mg Tablet) 6 mg PO BEDTIME PRN PRN Reason: Insomnia Ondansetron HCl (Ondansetron Hcl 4 Mg/2 Ml Vial) 4 mg IVPUSH QID PRN PRN Reason: Nausea Sodium Chloride (0.9 % Sodium Chloride Flush 3 Ml Syringe) 3 ml IVFLUSH QSHIFT [facility] Home Medications ?Medication ?Instructions ?Recorded ?Confirmed ?Last Taken ?Type No Known Home Meds 07/05/24 07/05/24 Unknown History Exam Height,Weight and Vital Signs: Height 5 ft 3 in Weight 77.5 kg Last Vital Signs Temp 98.4 F 07/05/24 15:31 Pulse 63 07/05/24 15:31 Resp 16 07/05/24 15:31 BP 108/64 07/05/24 15:31 Pulse Ox 97 07/05/24 15:31 O2 Del Method Room Air 07/05/24 15:31 Pertinent Lab Results Pertinent Lab Results: Laboratory Tests 07/05/24 07/05/24 11:49 14:33 WBC 9.1 RBC 5.24 Hgb 16.0 Hct 46.4 MCV 88.5 MCH 30.5 MCHC 34.5 RDW 12.2 Plt Count 247 MPV 8.9 L Immature Gran % (Auto) 0.2 Neut % (Auto) 73.6 H Lymph % (Auto) 17.3 L [place] % (Auto) 6.9 Eos % (Auto) 1.4 Baso % (Auto) 0.6 Lymph # (Auto) 1.6 [place] # (Auto) 0.6 Eos # (Auto) 0.1 Baso # (Auto) 0.1 Abs Immat Gran (auto) 0.02 Absolute Neuts (auto) 6.7 Absolute Nucleated RBC 0.000 Nucleated RBC % (auto) 0.0 BUN 11 Creatinine 0.77 Estim Creat Clear Calc 140.9 Estimated GFR > 60 Random Glucose 90 Calcium 9.9 D Magnesium 2.0 Total Bilirubin 0.5 Direct Bilirubin 0.2 AST 27 ALT 39 Alkaline Phosphatase 71 Total Protein 7.7 Albumin 4.7 Lipase 10 Urine Color Yellow Urine Appearance Clear Urine pH 7.5 Ur Specific [place] >= 1.030 H Urine Protein Negative Urine Glucose (UA) Negative Urine Ketones Negative Urine Blood Negative Urine Nitrite Negative Ur Leukocyte Esterase Negative Airway Mallampati Class: II TM Dist: >3cm Neck ROM: Full Loose/Missing/Broken Teeth: No Heart: RRR Lungs: CTAB Assessment and Plan Assessment Anesthesia Assessment: Anesthesia Plan Discussed and Chart Reviewed Final Anesthetic Review Family History of Problems with Anesthesia: No History of Problems with Anesthesia: No NPO: Yes ASA Class: I and Emergency Final Preanesthetic Review: No Changes in Pt Med Stat, Meds/Allgs Chart Reviewed, Consent Obtained/Reviewed and Anes Risks/Benef Reviewed Patient Risk: Low Procedure Risk: Intermediate Anesthetic Plan Anesthetic Plan: GA Disposition: Standard PACU
[2024-07-05 16:07] LABS: Anion Gap 17 (12-20); Carbon Dioxide 21 mmol/L (22-29); Chloride 107 mmol/L (96-108); Potassium 4.1 mmol/L (3.3-5.1); Sodium 141 mmol/L (135-145)
[2024-07-05] MEDS: Lactated Ringers 1,000 ML 100 ML IVCONT ×2 (16:10→19:35)
--- NOTE | 2024-07-05 18:00 | W.PM.OPN ---
Operative Note Operative Note Date of Service: 07/05/24 Narrative: Preoperative diagnosis: Acute appendicitis Postoperative diagnosis: Same Procedure: Laparoscopic appendectomy Surgeon: Javi Calderon MD Java Software Architect: None Anesthesia: General endotracheal Indications for procedure: 18-year-old male patient presenting with complaints of abdominal pain in the right upper quadrant of 2 days' duration. On examination the patient is tender in the right lower quadrant with a positive Rovsing sign. CT abdomen and pelvis revealed inflammatory changes at the tip of the appendix suggestive of acute appendicitis. Operative findings: Tortuous appendix with inflammatory tip Specimen: Appendix Estimated blood loss: Less than 2 mL Complications: None Procedure details: Patient was brought to the OR and placed in a supine position. After administering general anesthesia the patient's abdomen was prepped with ChloraPrep and draped in a sterile fashion. A surgical time-out was called the consent confirmed. Patient received preoperative antibiotics and Venodyne boots were in place. Local anesthesia consisting of 0.5% Sensorcaine was infiltrated in the periumbilical location. A 5 mm incision was made with a scalpel. A Veress needle was then inserted while elevating abdominal cavity with towel clips. After positive drop test the abdomen was insufflated to a pressure 15 mmHg. The Veress needle was removed and a 5 mm trocar inserted under direct vision. The camera was then inserted in the abdomen explored. A 5 mm trocar was placed in the lower midline and a 12 mm trocar placed in the left lower quadrant under direct vision. The patient was then rotated into a Trendelenburg position and rotated to the left. The appendix was noted in a retrocecal location along the lateral attachments of the cecum. The attachments were taken down using the LigaSure. The appendix was further mobilized and the mesentery divided using the LigaSure as well. The appendix was then divided using an Endo-MARY ANN purple 30. The appendix was then placed in an Endo-Catch bag and brought out through the left lateral trocar incision. Abdomen was then re-examined. No bleeding was identified at the appendiceal stump. CO2 was then evacuated from the abdominal cavity. All trocars were removed and no bleeding noted from the trocar site. All incisions were then closed using a subcuticular 4-0 Polysorb suture. Steri-Strips, 2 x 2 gauze and Tegaderm were then applied. The patient tolerated the procedure well. Sponge, instrument, and needle counts reported as correct. The patient was transferred to PACU in stable condition.
[2024-07-05] MEDS: Acetaminophen 1,000 MG/100 ML PIGGYBACK 400 MG IV (18:05)
[2024-07-05] MEDS: Simethicone 80 MG TAB.CHEW PO (22:20)
[2024-07-06] MEDS: oxyCODONE HCl Immed Release 5 MG TABLET PO (03:32)
[2024-07-06 03:34] VITALS: BP 119/58; PULSE 67; RESP 18; TEMP 36.2; O2SAT 97
[2024-07-06] MEDS: Lactated Ringers 1,000 ML 100 ML IVCONT (04:49)
--- NOTE | 2024-07-06 06:02 | PC.NURSE ---
Pt seen on bed at the start of the shift came from PACU post lap Appe, pt alert and oriented, claimed 4/10 tenderness on the op site and tolerating, icepack provided and applied on surgery site, 3 dressings noted intact with hypogastric dressing slightly stained, diet advanced to reg as ordered, pt tolerated, voided in the BR several times, had a BM x1, pt c/o epigastric pain after eating, described it as gas pain, Dr. Calderon was notified, Simethicon chewable tab order, pt had relief after, slept fairly.
[2024-07-06 07:37] VITALS: BP 127/58; PULSE 60; RESP 18; TEMP 36.4; O2SAT 98
[2024-07-06] MEDS: HYDROmorphone HCl 0.5 MG/0.5 ML SYRINGE IVPUSH (08:33)
--- NOTE | 2024-07-06 08:40 | PM.PNGS ---
Subjective Subjective Date of Service: 07/06/24 Interval history: Patient reports some upper abdominal pain and shoulder pain. He was able to tolerate food yesterday without increased nausea or vomiting. He reports a bowel movement during the night as well. Physical Exam Vital Signs: Vital Signs: Last Vital Signs Temp 97.5 F 07/06/24 07:37 Pulse 60 07/06/24 07:37 Resp 18 07/06/24 07:37 BP 127/58 L 07/06/24 07:37 Pulse Ox 98 07/06/24 07:37 O2 Del Method Room Air 07/06/24 07:37 BMI result Body Mass Index 32.2 Const: General: healthy appearing Nutritional Appearance: well nourished Orientation/consciousness: patient oriented x3 Limitations: no limitations Resp: Effort & Inspection: normal respiratory effort GI: Other: Soft, nondistended, trocar incisions are clean, dry, and intact with intact dressings. Neuro: General: patient oriented x3 Extrem: General: Yes normal to inspection Objective Data Active Medications Hydromorphone HCl (Hydromorphone Hcl 0.5 Mg/0.5 Ml Syringe) 0.5 mg IVPUSH Q3H PRN; Protocol PRN Reason: Pain, Severe (Pain Scale 7-10) Last Admin: 07/06/24 08:33 Dose: 0.5 mg Documented By: JACKLYN Lactated Ringer's (Lr) 1,000 mls @ 100 mls/hr IVCONT .Q10H NEIDA Last Admin: 07/06/24 04:49 Dose: 100 mls/hr Documented By: MARCIAL Melatonin (Melatonin 3 Mg Tablet) 6 mg PO BEDTIME PRN PRN Reason: Insomnia Ondansetron HCl (Ondansetron Hcl 4 Mg/2 Ml Vial) 4 mg IVPUSH QID PRN PRN Reason: Nausea Oxycodone HCl (Oxycodone Hcl Immed Release 5 Mg Tablet) 5 mg PO Q6H PRN PRN Reason: Pain, Moderate(Pain Scale 4-6) Last Admin: 07/06/24 03:32 Dose: 5 mg Documented By: MARCIAL Simethicone (Simethicone 80 Mg Tab.Chew) 80 mg PO QIDWMHS PRN PRN Reason: Gas Last Admin: 07/05/24 22:20 Dose: 80 mg Documented By: MARCIAL Sodium Chloride (0.9 % Sodium Chloride Flush 3 Ml Syringe) 3 ml IVFLUSH QSHIFT NEIDA Last Admin: 07/06/24 00:03 Dose: Not Given Documented By: MARCIAL Non-Admin Reason: IV Running Labs 07/05/24 11:49 07/05/24 11:49 Labs: Laboratory Results - last 24 hr 07/05/24 07/05/24 11:49 14:33 MCV 88.5 MCH 30.5 MCHC 34.5 RDW 12.2 Plt Count 247 MPV 8.9 L Immature Gran % (Auto) 0.2 Neut % (Auto) 73.6 H Lymph % (Auto) 17.3 L [place] % (Auto) 6.9 Eos % (Auto) 1.4 Baso % (Auto) 0.6 Lymph # (Auto) 1.6 [place] # (Auto) 0.6 Eos # (Auto) 0.1 Baso # (Auto) 0.1 Abs Immat Gran (auto) 0.02 Absolute Neuts (auto) 6.7 Absolute Nucleated RBC 0.000 Nucleated RBC % (auto) 0.0 Anion Gap 17 Estim Creat Clear Calc 140.9 Estimated GFR > 60 Random Glucose 90 Calcium 9.9 D Magnesium 2.0 Total Bilirubin 0.5 Direct Bilirubin 0.2 AST 27 ALT 39 Alkaline Phosphatase 71 Total Protein 7.7 Albumin 4.7 Lipase 10 Urine Color Yellow Urine Appearance Clear Urine pH 7.5 Ur Specific [place] >= 1.030 H Urine Protein Negative Urine Glucose (UA) Negative Urine Ketones Negative Urine Blood Negative Urine Nitrite Negative Ur Leukocyte Esterase Negative Procedures Date of Service Date of Service: 07/06/24 Progress Note: A&P Assessment and plan (1) Acute appendicitis: Status: Acute (2) S/P laparoscopic appendectomy: Status: Acute Plan 18-year-old male patient status post laparoscopic appendectomy for acute appendicitis. He tolerated the procedure well and his wounds are healing nicely. He was tolerating regular diet without nausea or vomiting. Plan for discharge today to home. He should follow up in the office in approximately 1 week. He should avoid lifting greater than 10 lb for the next 2 weeks. Time Spent With Patient Time: Total time managing care of this patient today ____ minutes. Quality Stroke Does the patient have a stroke diagnosis?: No VTE Prior VTE?: No VTE Risk Level:: Surgical - low VTE Device Contraindication: N/A - Device Ordered VTE Drug Contraindication: Treatment Not Indicated
[2024-07-06] MEDS: Simethicone 80 MG TAB.CHEW PO (08:43)
--- NOTE | 2024-07-06 10:40 | MHC.CM.PN ---
Patient dc'd home self care via private transport prior to CM assessment.
--- NOTE | 2024-07-06 11:09 | HO.POSTANES ---
Post Anesthesia Evaluation Post Anesthesia Evaluation Date of Service: 07/06/24 Vital Signs: Vital Signs Temp Pulse Resp BP Pulse Ox O2 Del Method 07/06/24 07:37 97.5 F 60 18 127/58 L 98 Room Air 07/06/24 03:34 97.2 F 67 18 119/58 L 97 Room Air 07/05/24 23:34 97.9 F 88 18 131/62 96 Room Air Anesthesia: General Endotracheal-GETA Mental Status: Awake Pain Control: Satisfactory (still some abd. pain, some shoulder pain may be a result of pneumoperitoneum) Nausea/Vomiting: None Hydration: Adequate Anesthesia-Related Issues: No Anes. Related Issues
--- NOTE | 2024-07-06 14:44 | PM.DS ---
DS: Providers Provider Date of Service: 07/06/24 Date of admission: 07/05/24 18:24 Date of discharge: 07/06/24 Primary care physician: Unknown Physician Admitting clinician: Javi Calderon Attending physician on discharge: Javi Calderon DS: Diagnosis Discharge Diagnosis (1) Acute appendicitis: Status: Acute (2) S/P laparoscopic appendectomy: Status: Acute DS: Summary Hospital Course Hospital Course: HPI: Neil Duncan is a 18 year old male presenting with complaints of abdominal pain in the right lower quadrant for 1.5 days. He denies a previous history of similar pain. The pain began in the right lower quadrant and has remained in this location. Upon presentation emergency department is pain was 10/10 in severity. He also reports nausea and vomiting in the emergency department. He denied fever, chills, diarrhea or constipation. Workup in the emergency department revealed tenderness in the right lower quadrant. Laboratories revealed a normal WBC however CT abdomen and pelvis was significant for inflammatory changes at the tip of the appendix suggestive of acute appendicitis without perforation or abscess. Hospital Course: He was admitted to the surgical service for further management of the acute appendicitis. It was recommended to proceed with laparoscopic appendectomy. On 07/05 a laparoscopic appendectomy was performed by Dr. Calderon without complications. Patient tolerated the procedure well, and was observed overnight. He had an uncomplicated recovery course. Patient is tolerating normal diet, has adequate pain control. Abdominal exam was unremarkable. Patient has appropriate abdominal tenderness at the incision sites. Dressings are clean, dry and intact. He felt ready for discharge, and was discharged on 07/06/24. Upon discharge patient was stable. Patient will follow up in the office in one week. Status at Discharge Functional status at discharge: independent ambulation Overall status at discharge: patient is progressing back to baseline Time Attestation Discharge Coordination Time (in mins): 30 Quality: Safe Use of Opioids Does Pt have an Active Cancer Diagnosis on the Problem List?: No Quality: Stroke Does the patient have a stroke diagnosis?: No Physical Exam Vital Signs: Vital Signs: Last Vital Signs Temp 97.5 F 07/06/24 07:37 Pulse 60 07/06/24 07:37 Resp 18 07/06/24 07:37 BP 127/58 L 07/06/24 07:37 Pulse Ox 98 07/06/24 07:37 O2 Del Method Room Air 04/20/25 07:37 BMI result Body Mass Index 32.2 Const: General: cooperative and no acute distress Orientation/consciousness: patient oriented x3 GI: Palpation (GI): Soft to palpation, Tenderness to palpation present (GI) (mild tenderness along incision sites) and no guarding Neuro: General: patient oriented x3 DS: Data Data Completed and Pending Pending studies at discharge: Pending at discharge 07/05/24 17:48 Surgical [PTH] Routine Discharge Plan Discharge Anticipated Discharge Date/Time: 07/06/24 08:22 Patient Disposition: Home, Self-Care Discharge Diagnosis: Acute appendicitis Referrals: Javi Calderon MD [Physician] - 1 Week Physician,Melvin Senior [Primary Care Provider] - 1 Week Discharge Medications: New oxycodone 5 mg tablet 5 mg PO Q6H PRN (Reason: pain (scale score 7-10)) Qty: 15 0RF Rx Instructions: Partial Fill upon patient request. simethicone [Gas Relief (simethicone)] 125 mg tablet,chewable 250 mg PO BID PRN (Reason: gas pain) Qty: 30 0RF Discharge Orders: Discharge Order (Routine); Ordered 07/06/24 Ordered By: Javi Calderon Diet: Advance to usual diet Activity on Discharge: No heavy lifting Stand Alone Forms: Patient Portal Discharge page, Work/School Release Print Language: [place] Citizen Care Plan Goals: Returned to normal diet and activity Health Concerns: Abdominal pain right lower quadrant due to acute appendicitis Plan of Treatment: Laparoscopic appendectomy performed on 07/05/2024 Assessment: Acute appendicitis without perforation or abscess Discharge Date/Time: 07/06/24 10:38
--- NOTE | 2024-07-10 09:21 | P.DS_ITS ---
DS: Providers Provider Date of Service: 07/06/24 Date of admission: 07/05/24 18:24 Date of discharge: 07/06/24 Primary care physician: Unknown Physician Attending physician on admission: Javi Calderon Attending physician on discharge: Javi Calderon DS: Diagnosis Discharge Diagnosis (1) Acute appendicitis: Status: Acute (2) S/P laparoscopic appendectomy: Status: Acute DS: Summary Hospital Course Hospital Course: HPI: Neil Duncan is a 18 year old male presenting with complaints of abdominal pain in the right lower quadrant for 1.5 days. He denies a previous history of similar pain. The pain began in the right lower quadrant and has remained in this location. Upon presentation emergency department is pain was 10/10 in severity. He also reports nausea and vomiting in the emergency department. He denied fever, chills, diarrhea or constipation. Workup in the emergency department revealed tenderness in the right lower quadrant. Laboratories revealed a normal WBC however CT abdomen and pelvis was significant for inflammatory changes at the tip of the appendix suggestive of acute appendicitis without perforation or abscess. Hospital Course: He was admitted to the surgical service for further management of the acute appendicitis. It was recommended to proceed with laparoscopic appendectomy. On 07/05 a laparoscopic appendectomy was performed by Dr. Calderon without complications. Patient tolerated the procedure well, and was observed overnight. He had an uncomplicated recovery course. Patient is tolerating normal diet, has adequate pain control. Abdominal exam was unremarkable. Patient has appropriate abdominal tenderness at the incision sites. Dressings are clean, dry and intact. He felt ready for discharge, and was discharged on 07/06/24. Upon discharge patient was stable. Patient will follow up in the office in one week. Physical Exam Vital Signs: Vital Signs: Last Vital Signs Temp 97.5 F 07/06/24 07:37 Pulse 60 07/06/24 07:37 Resp 18 07/06/24 07:37 BP 127/58 L 07/06/24 07:37 Pulse Ox 98 07/06/24 07:37 O2 Del Method Room Air 07/06/24 07:37 BMI result Body Mass Index 32.2 DS: Data Data Completed and Pending Completed studies during hospitalization [Text1]: Pending at discharge 07/05/24 17:48 Surgical [PTH] Routine Discharge Plan Discharge Anticipated Discharge Date/Time: 07/06/24 08:22 Patient Disposition: Home, Self-Care Discharge Diagnosis: Acute appendicitis Referrals: Javi Calderon MD [Physician] - 1 Week Physician,Melvin Senior [Primary Care Provider] - 1 Week Discharge Medications: New oxycodone 5 mg tablet 5 mg PO Q6H PRN (Reason: pain (scale score 7-10)) Qty: 15 0RF Rx Instructions: Partial Fill upon patient request. simethicone [Gas Relief (simethicone)] 125 mg tablet,chewable 250 mg PO BID PRN (Reason: gas pain) Qty: 30 0RF Discharge Orders: Discharge Order (Routine); Ordered 07/06/24 Ordered By: Javi Calderon Diet: Advance to usual diet Activity on Discharge: No heavy lifting Stand Alone Forms: Patient Portal Discharge page, Work/School Release Print Language: Mal[place]ian Care Plan Goals: Returned to normal diet and activity Health Concerns: Abdominal pain right lower quadrant due to acute appendicitis Plan of Treatment: Laparoscopic appendectomy performed on 07/05/2024 Assessment: Acute appendicitis without perforation or abscess Discharge Date/Time: 07/06/24 10:38
== END 2024-07-06 10:38 | disposition home or self-care (01) | DRG 234 ==
LOC: HO.ED 15:35 → HO.SSS 16:07 → HO.EDOVER 18:25 → HO.S3 18:32
PROVIDERS: Physician Assistant Medical; Absent Provider Surgery; Admitting Provider Surgery; Emergency Provider Emergency Medicine; Visit Provider Surgery
PROC: 0DTJ4ZZ Resection of Appendix, Percutaneous Endoscopic Approach (ICD-10-PCS; CPT 44970; principal; 2024-07-05 17:00)
DX: K35.80 Unspecified acute appendicitis (principal); Z87.891 Personal history of nicotine dependence
CPT/HCPCS: 44970; 36415; 74177; 80048; 80076; 81003; 83690; 83735; 85025; 88304; 99285; J0131; J1100; J1171; J1885; J2003; J2405; J2543; J2704; J3010; J7120; Q9967

== ENCOUNTER → 2024-07-05 11:58 | Outpatient (BNV) | payer OTHER, SELFPAY | PROVIDERS: Emergency Provider Emergency Medicine; Visit Provider Specialist | DX: K37 Unspecified appendicitis (principal) | CPT/HCPCS: 74177 ==

== ENCOUNTER → 2024-07-05 11:59 | Outpatient (BNV) | payer OTHER, SELFPAY | PROVIDERS: Emergency Provider Emergency Medicine; Visit Provider Surgery | DX: K35.80 Unspecified acute appendicitis (principal); Z90.49 Acquired absence of other specified parts of digestive tract | CPT/HCPCS: 44970; 99024; 99222 ==

== ENCOUNTER 2024-07-22 15:55 | Outpatient (AMB) | payer OTHER, SELFPAY ==
--- NOTE | 2024-07-22 15:57 | A.OFFVIS_ITS ---
Vital Signs 07/22/24 16:02 Height 5 ft 3 in Weight 181 lb BMI 32.1 BP 145/67 H Blood Pressure Location Lt brachial Position Sitting Pulse 73 Intake Visit Reasons: post appendectomy Intake Note: Patient is seen in office for post op assessment post appendectomy. 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 He tolerated the procedure well and his wounds are healing nicely. He denies any nausea, vomiting, fever, chills, diarrhea or constipation. [facility] Medical History Acute appendicitis Rupture of testis No known health problems Surgical History S/P laparoscopic appendectomy (07/05/24) History of tonsillectomy and adenoidectomy Social History Household Members: Family Housing: Apartment Unable to assess alcohol history related to: Unknown Patient Tobacco Use Status: Former Tobacco user Physical Exam Vital Signs: Last Vital Signs Pulse 73 07/22/24 16:02 BP 145/67 H 07/22/24 16:02 BMI result Body Mass Index 32.1 Const General: no acute distress Nutritional Appearance: well nourished Orientation/consciousness: patient oriented x3 Resp Effort & Inspection: normal respiratory effort GI Other: Trocar incisions are clean, dry, and intact without redness or discharge. Skin General skin exam: no rashes or lesions noted Neuro General: patient oriented x3 Assessment & Plan Assessment & Plan (1) Acute appendicitis: Code(s): K35.80 - Unspecified acute appendicitis Category: Medical Qualifiers: Acute appendicitis type: unspecified acute appendicitis type Qualified Code(s): K35.80 - Unspecified acute appendicitis Plan 18-year-old male patient returning status post laparoscopic appendectomy for acute appendicitis on 07/05/2024. His wounds are healing well without hernia or infection. There is a spitting suture in the left lateral incision but no underlying infection. We will apply some bacitracin ointment until completely healed. He may resume normal activity without restrictions and should follow up as needed. Coding Level of Care Code Global (24416) Diagnoses Acute appendicitis K35.80 Acute appendicitis type: unspecified acute appendicitis type
[2024-07-22 16:02] VITALS: BP 145/67; PULSE 73; BMI 32.1
--- OUTSIDE RECORDS SUMMARY | 2024-07-22 16:52 | XMS_ITS | Clinical Summary ---
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 Name Role Phone aSleem Lozano MD Primary Care Provider [phone] Social History Tobacco Use Types Packs/Day Years Used Date Smoking Tobacco: Never Assessed Sex and Gender Information Value Date Recorded Sex Assigned at Not on file Legal Sex Male 3:43 PM EST Gender Identity Not on file Sexual Orientation Not on file Plan of Treatment Upcoming Encounters Date Type Department Care Team ([facility] Contact Info) Description 10/10/2024 9:00 AM EDT Office Visit Internal Medicine - [address] [address] Saleem Lozano MD [address] [address] Health Maintenance Due Date Last Done Comments Varicella Vaccines (1 of 2 - 13+ 2-dose series) 12/20/2016 HPV Vaccines (1 - Male 3-dos e series) 12/20/2018 Meningococcal B Vaccine (1 o f 2 - Standard) 2019 DTaP,Tdap,and Td Vaccines (1 - Tdap) 12/20/2022 Hepatitis B Vaccines (1 of 3 - 19+ 3-dose series) 12/20/2022 COVID-19 Vaccine (1 - 2023-2 5 season) 2023 Annual Well Child Visit (3-2 1 years old) 04/03/2024 Depression Screening 04/03/2024 HIV Screening 04/03/2024 Hepatitis C Screening 04/03/2024 Social Influencers of Health Screening 04/03/2024 Influenza Vaccine (Season Ended) 2024 HIB Vaccines Aged Out No longer eligi ble based on patient's age to complete this topic Hepatitis A Vaccines Aged Out No long er eligible based on patient's age to complete this topic IPV Vaccines Aged Out No longer eligi ble based on patient's age to complete this topic MMR Vaccines Aged Out No longer eligi ble based on patient's age to complete this topic Meningococcal ACWY Vaccine Aged Out N o longer eligible based on patient's age to complete this topic Pneumococcal Vaccine: Pediat rics (0 to 5 Years) and At-Risk Patients (6 to 64 Years) Aged Out No longer eligible b ased on patient's age to complete this topic RSV Immunization Patients Un rikki 20 months Aged Out No longer eligible b ased on patient's age to complete this topic Insurance [facility] Care Teams Ceramic Tile Setter Relationship Specialty Start Date End Date Saleem Lozano MD [address] [facility] [address] [place] [address] PCP - General Internal Medicine 04/02/24
== END 2024-07-22 16:08 | disposition home or self-care (01) ==
LOC: HO.HGS 15:56
PROVIDERS: Visit Provider Surgery
DX: K35.80 Unspecified acute appendicitis (principal)
CPT/HCPCS: 99024

== ENCOUNTER → 2024-07-22 15:55 | Outpatient (BNVA) | payer OTHER, SELFPAY | PROVIDERS: Visit Provider Surgery | DX: Z48.815 Encounter for surgical aftercare following surgery on the digestive system (principal); Z98.890 Other specified postprocedural states | CPT/HCPCS: 99212 ==

== ENCOUNTER 2024-07-27 17:12 | Emergency (ER) | payer OTHER, SELFPAY ==
[2024-07-27 17:20] VITALS: BP 121/73; PULSE 82; RESP 17; TEMP 36.6; O2SAT 98; BMI 31.0
--- NOTE | 2024-07-27 17:20 | ED_ITS ---
HPI - General Adult General Chief complaint: Wound/Laceration Stated complaint: recent surgery, wound leaking puss Time Seen by Provider: 07/27/24 19:32 Source: patient Limitations: no limitations History of Present Illness ED Provider: Edita Terrell PA-C HPI narrative: 18-year-old male who is status post appendectomy on July [address] Calderon, presents with concern for infection at trocar site. [place] has developed redness with a small amount of pus over the site. Denies fever, worsening swelling redness or warmth at the site. Related Data Previous Rx's ?Medication ?Instructions ?Recorded simethicone 125 mg chewable tablet 250 mg (2 x 125 mg) PO BID PRN gas 07/06/24 (Gas Relief (simethicone)) pain #30 tabs doxycycline hyclate 100 mg capsule 100 mg PO BID #13 caps 07/27/24 Allergies Allergy/AdvReac Type Severity Reaction Status Date / Time shellfish derived Allergy Severe Anaphylaxis Verified 07/27/24 17:24 Review of Systems 2 Review of Systems: Yes all other systems are reviewed and are negative Constitutional: Constitutional: Denies fatigue and Denies fever(s) Cardiovascular: Cardiovascular: Denies chest pain and Denies dyspnea Respiratory: Respiratory: Denies cough and Denies dyspnea Gastrointestinal: Gastrointestinal: Denies abdominal pain, Denies nausea and Denies vomiting Integumentary/Breasts: Skin/Breast: Reports erythema and Reports wounds Endocrine: Endocrine: Denies fatigue PMFSH Past Medical History Attestation statement: The following information was validated with the patient. Medical History Acute appendicitis Rupture of testis No known health problems Surgical History S/P laparoscopic appendectomy (07/05/24) History of tonsillectomy and adenoidectomy Social History Social History Household Members: Family Housing: Apartment Unable to assess alcohol history related to: Unknown Patient Tobacco Use Status: Former Tobacco user Advance Directives: No Advance Directives Information Provided: Yes Do you have a plan to hurt others: No Plan Physical Exam ED Vital Signs: Vital Signs - 24 hr 07/27/24 17:20 07/27/24 18:46 Temperature 98 F 98.5 F Pulse Rate 82 76 Respiratory Rate 17 18 Blood Pressure 121/73 107/54 L Pulse Oximetry 98 98 Oxygen Delivery Method Room Air Room Air BMI result Body Mass Index 31.0 Const Other: Alert well-appearing Orientation/consciousness: patient oriented x3 Resp Effort & Inspection: normal respiratory effort Cardio Other: normal peripheral perfusion GI Other: abdomen is soft, nontender nondistended, the trocar site in question, is closed, very superficially there is dehiscence, mild erythema, no swelling or induration, a very minimal amount of pus was expressed from the site, Skin Other: warm dry no rash Neuro General: patient oriented x3, gait normal, no focal motor deficits and CN's II- XI intact bilaterally Psych Other: cooperative Course Course Course Narrative: RME performed by Marium Otero PA-C. Patient is a 18 year old assigned male at presenting to the emergency department with concerns about a post- operative wound. Patient states on 07/05/2024 he had an appendectomy by Dr. Calderon and his other wounds have healed fine but his left lower laproscopy wound keeps re-opening and draining. Detailed physical exam and review of systems are deferred to the service agent. Labs ordered. Patient placed back in the waiting room pending room availability and results. Medical Decision Making Medical Decision Making MDM Narrative: 18-year-old male who is status post appendectomy on July [address] Calderon, presents with concern for infection at trocar site. [place] has developed redness with a small amount of pus over the site. Denies fever, worsening swelling redness or warmth at the site. problem: Recent surgery History: Per patient I have considered the following differential diagnoses: Cellulitis, purulent cellulitis, abdominal wall abscess Plan: Screening labs were obtained from triage, the patient has very subtle purulent cellulitis, to err on the side of caution placing him on doxy. I have viewed the site with bedside ultrasound, there was not an abscess forming beneath the trocar site. Lab Data 07/27/24 17:42 07/27/24 17:42 Labs: Lab Results 07/27/24 Range/Units 17:42 WBC 5.4 (4.8-10.8) X10*3/uL RBC 4.84 (4.60-5.80) X10*6/uL Hgb 14.8 (14.0-18.0) g/dl Hct 42.3 (42.0-52.0) % MCV 87.4 (80.0-98.0) fL MCH 30.6 (27.0-33.0) pg MCHC 35.0 (31.0-36.0) g/dl RDW 12.0 (11.0-16.0) % Plt Count 242 (160-400) X10*3/uL MPV 9.0 L (9.4-12.4) fL Immature Gran % (Auto) 0.2 (0.0-0.4) % Neut % (Auto) 45.5 (45-73) % Lymph % (Auto) 42.0 H (20-40) % King % (Auto) 8.4 (2-11) % Eos % (Auto) 3.2 (0-4) % Baso % (Auto) 0.7 (0-2) % Lymph # (Auto) 2.3 (1.2-4.9) X10*3/uL King # (Auto) 0.5 (0.1-1.2) X10*3/uL Eos # (Auto) 0.2 (0.0-0.4) X10*3/uL Baso # (Auto) 0.0 (0.0-0.2) X10*3/uL Abs Immat Gran (auto) 0.01 (0.00-0.03) X10*3/uL Absolute Neuts (auto) 2.4 (2.0-8.3) x10*3/uL Absolute Nucleated RBC 0.000 (0.0-0.012) X10*3/uL Nucleated RBC % (auto) 0.0 (0.0-0.2) /100WBC ESR 2 (0-15) MM/HR Sodium 141 (135-145) mmol/L Potassium 3.8 (3.3-5.1) mmol/L Chloride 107 (96-108) mmol/L Carbon Dioxide 24 (22-29) mmol/L Anion Gap 14 (12-20) BUN 14 (9-16) mg/dL Creatinine 1.07 (0.5-1.4) mg/dL Estim Creat Clear Calc 102.6 Estimated GFR > 60 Random Glucose 115 (60-115) mg/dL Calcium 9.0 D (8.4-10.2) mg/dL Total Bilirubin 0.3 (0.0-1.0) mg/dL AST 35 (5-37) U/L ALT 58 H (0-40) U/L Alkaline Phosphatase 69 (39-117) U/L C-Reactive Protein < 0.10 (< or = 0.50) mg/dL Total Protein 6.9 (6.5-8.0) g/dL Albumin 4.2 (3.5-5.0) g/dL Discharge Plan Discharge Clinical Impression: Cellulitis Patient Disposition: Home, Self-Care Instructions: Cellulitis (ED), Warm Compress or Soak (ED) Additional Instructions: you are being treated for cellulitis. See home care instructions. Complete the course of doxycycline. Follow up with your primary care provider as needed. Prescriptions: New doxycycline hyclate 100 mg capsule 100 mg PO BID Qty: 13 0RF No Action simethicone [Gas Relief (simethicone)] 125 mg tablet,chewable 250 mg PO BID PRN (Reason: gas pain) Qty: 30 0RF Print Language: Telugu
[2024-07-27 17:52] LABS: Basophils Percent Auto 0.7 % (0-2); Eosinophils Absolute Auto 0.2 X10*3/uL (0.0-0.4); Eosinophils Percent Auto 3.2 % (0-4); Hematocrit 42.3 % (42.0-52.0); Hemoglobin 14.8 g/dl (14.0-18.0); Imm Gran Abs Auto 0.01 X10*3/uL (0.00-0.03); Imm Gran Pct Auto 0.2 % (0.0-0.4); Lymphocytes Absolute Auto 2.3 X10*3/uL (1.2-4.9); MANUAL DIFF FLAG NO; Mean Corpuscular Hemoglobin 30.6 pg (27.0-33.0); Mean Corpuscular Volume 87.4 fL (80.0-98.0); Monocytes Absolute Auto 0.5 X10*3/uL (0.1-1.2); Monocytes Percent Auto 8.4 % (2-11); Neutrophils Absolute Auto 2.4 x10*3/uL (2.0-8.3); Neutrophils Percent Auto 45.5 % (45-73); Platelet Count 242 X10*3/uL (160-400); Red Blood Count 4.84 X10*6/uL (4.60-5.80); White Blood Count 5.4 X10*3/uL (4.8-10.8)
[2024-07-27 18:06] LABS: Alanine Aminotransferase 58 U/L (0-40); Albumin Level 4.2 g/dL (3.5-5.0); Alkaline Phosphatase 69 U/L (39-117); Anion Gap 14 (12-20); Aspartate Amino Transferase 35 U/L (5-37); Bilirubin Total 0.3 mg/dL (0.0-1.0); Blood Urea Nitrogen 14 mg/dL (9-16); C Reactive Protein < 0.10 mg/dL (< or = 0.50); Carbon Dioxide 24 mmol/L (22-29); Chloride 107 mmol/L (96-108); Creatinine Clr Calc Pharmacy 102.6; Estimated Glomerular Filt Rate > 60; Glucose Random 115 mg/dL (60-115); Potassium 3.8 mmol/L (3.3-5.1); Sodium 141 mmol/L (135-145); Total Protein 6.9 g/dL (6.5-8.0)
[2024-07-27 18:40] LABS: Erythrocyte Sedimentation Rate 2 MM/HR (0-15)
[2024-07-27 18:46] VITALS: BP 107/54; PULSE 76; RESP 18; TEMP 36.9; O2SAT 98
[2024-07-27] MEDS: Doxycycline Monohydrate 100 MG CAPSULE PO (20:25)
[2024-07-27 20:43] VITALS: BP 110/61; PULSE 69; RESP 16; TEMP 36.9; O2SAT 99
== END 2024-07-27 20:44 | disposition home or self-care (01) ==
PROVIDERS: Physician Assistant Medical; Emergency Provider Emergency Medicine Emergency Medical Services
DX: L03.311 Cellulitis of abdominal wall (principal); Z79.899 Other long term (current) drug therapy
CPT/HCPCS: 36415; 80053; 85025; 85652; 86140; 99282; 99283